=== PATIENT | female | born 1950 | race Caucasian/White ===

== ENCOUNTER 2018-06-21 11:32 | Outpatient (REF) | payer MEDICARE, BC, SELFPAY ==
--- NOTE | 2018-06-21 09:30 | PAPFT_PTH ---
PATIENT: Edda Hogue LOC: [facility] U#:[id number] AGE/SX: 67/F ROOM: RE06/21/[address]: ARIEL Silver : 1950 BED: DIS: 06/21/2018 SPEC #: [id number] RECD: 06/21/18 13:17 STATUS: SUSAN REQ #: [id number] DAYA: 06/21/18 09:[address]: Mónica Hamilton DEPT: [facility] Cytology RECD BY: Khushboo Nixon ENTERED: 06/21/18 13:17 SP TYPE: PAPFT OT DR: Terra Wilson MD Tissues: 1 - CX/ENDOCX FOR PAP SMEARS Procedures: PAP THIN PREP/UVM Screening Comments: [id number]
== END 2018-06-21 11:52 ==
LOC: LBN 11:32
PROVIDERS: PCP Internal Medicine; Visit Provider Nurse Practitioner Family
DX: Z12.4 Encounter for screening for malignant neoplasm of cervix (principal)
CPT/HCPCS: 88142

== ENCOUNTER 2018-06-26 02:24 | Outpatient (CLI) | payer MEDICARE, BC, SELFPAY ==
[2018-06-26 11:30] LABS: Abs Immature Grans 0.01 k/cumm (0.0-0.09); Absolute Basophil Count 0.04 k/cumm (0.0-0.2); Absolute Eosinophil Count 0.12 k/cumm (0.0-0.7); Absolute Lymphocyte Count 2.58 k/cumm (1.2-3.4); Absolute Monocyte Count 0.43 k/cumm (0.11-0.7); Absolute Neutrophil Count 2.23 k/cumm (1.2-6.7); Basophils % 0.7; Eosinophils % 2.2; HCT 42.3 % (36.0-46.0); HGB 14.3 g/dL (12.0-15.5); Immature Grans % 0.2; Lymphocytes % 47.7; Mean Corp. HGB Concentration 33.8 g/dL (32.0-36.0); Mean Corpuscular Hemoglobin 31.2 pg (27.0-33.0); Mean Corpuscular Volume 92.2 fL (80-95); Mean Platelet Volume 10.8 fL (8.0-11.0); Monocytes % 7.9; Neutrophils % 41.3; Platelet Count 234 x1000/uL (130-400); RBC 4.59 m/cumm (4.00-5.20); RBC Distribution Width 12.2 % (11.7-14.6); White Blood Cell Count 5.41 k/cumm (4.4-10.8)
[2018-06-26 11:55] LABS: ALT 24 U/L (12-78); AST 15 U/L (15-37); Albumin 3.5 g/dL (3.4-5.0); Alkaline Phosphatase 74 U/L (46-116); Anion Gap 4.5 mmol/L (3-11); BUN 16 mg/dL (7-18); Bilirubin, Total 0.5 mg/dL (0.2-1.0); CO2 29.5 mmol/L (21.0-32.0); CREATININE 0.78 mg/dL (0.55-1.02); Chloride 103 mmol/L (98-107); Cholesterol 255 mg/dL (50-200); Glucose 83 mg/dL (70-100); HDL Cholesterol 76 mg/dL (40-60); LDL CHOLESTEROL 158 mg/dL (<100); Potassium 4.1 mmol/L (3.5-5.1); Sodium 137 mmol/L (136-145); TSH (W/Ref FT4) 1.35 uIU/mL (0.358-3.74); Total Protein 6.4 g/dL (6.4-8.2); Triglyceride 94 mg/dL (30-150)
== END 2018-06-26 02:44 ==
PROVIDERS: PCP Internal Medicine; Visit Provider Internal Medicine
DX: I10 Essential (primary) hypertension (principal); E78.5 Hyperlipidemia, unspecified; R63.5 Abnormal weight gain
CPT/HCPCS: 36415; 80053; 80061; 83721; 84443; 85025

== ENCOUNTER 2019-03-21 12:45 | Emergency (ER) | payer MEDICARE, BC, SELFPAY ==
[2019-03-21] VITALS (8 sets, daily range): BP systolic 168–172; BP diastolic 73–81; PULSE 48–63; RESP 11–18; TEMP 36.5; O2SAT 95–98
--- NOTE | 2019-03-21 12:58 | ED.GENADUL_ITS ---
Discharge Plan Disposition Patient Disposition: HOME Condition: Stable Discharge Details Chief Complaint: Chest Pain Clinical Impression: Chest pain Primary Care Provider: Terra Purcell ED Provider: Aime Tarango Home Meds and New Rx's Prescriptions: Continued ibandronate [Boniva] 150 mg tablet 150 mg PO QMONTH Qty: 12 RF: 0 calcium carbonate-vitamin D3 1 EACH tablet 1 tab-cap PO BID Qty: 200 RF: 4 ascorbic acid (vitamin C) [Vitamin C] 500 MG capsule, extended release 500 mg PO BID Qty: 200 RF: 4 cholecalciferol (vitamin D3) 1,000 UNIT tablet 1,000 unit PO daily prn Qty: 100 RF: 4 TheraTears Nutrition 1 EACH capsule 3 tab PO DAILY RF: 0 CENTRUM SILVER TABLET 1 EACH tablet 1 tab-cap PO DAILY Qty: 100 RF: 4 ibuprofen 200 MG tablet 400 mg PO Q6H PRN RF: 0 omeprazole 10 mg capsule,delayed release(DR/EC) 20 mg PO .Every other day RF: 0 lisinopril 10 mg tablet 10 mg PO DAILY Qty: 90 RF: 4 Discharge Instructions Instructions: Chest Pain (ED) Additional Instructions: if symptoms are worsening, you have worse pain or difficulty breathing or feel more ill return to the emergency department Medical Decision Making 68 yo female with hx of htn comes in with intermittent weird sensation in left chest for 2 weeks. denies prior hx of heart disease, no prior IN, stents or cabg. She denies radiation of pain, diaphhoresis, n/v or pain with exertion. She localizes the pain to the left anterior chest in mid clavicular line and has reproducible pain here, clear lung sonuds andno pain with deep breaths. She has no fevers or cough, no le swelling or calf pain. She is speaking in full sentences on exam in no distress. Her heart score is 3, will send troponin. She has no hypoxia or tachycardia and no evidence of dvt so doubt Pe. no tearing back pain and normal vascular exam so doubt dissection pt remains stable, has intermittent twinges in above stated area. Labs reassuring, given low heart score and symptoms over a week do not feel repeat troponin indicated. Will have her f/u with her pcp, return precautions given Differential Diagnosis Differential Diagnosis: nstemi, palpitations, pna Medical Records Medical records reviewed: Yes I reviewed the patient's medical records. Lab Data Lab results reviewed: Yes I reviewed the patient's lab results. ECG Data Attestation: I personally reviewed and interpreted this ECG (s) as follows: Prior ECG tracings: not available for review Interpretation: sinus rhythm, rate of 60, pr 113, qtc 412, no acute st t wave ischemic findings HPI General Mode of arrival: ambulatory . Date/Time Provider Initiated Documentation: 03/21/19 12:54 . Limitations to Documentation: no limitations . Information obtained by: patient . History of Present Illness 68 year old F presents to the emergency department with the chief complaint of chest discomfort, described as mild, and it has been constant. No relieving factors improve symptom(s), No exacerbating factors reported . Patient did receive the following treatments prior to arrival, none Related Data Home Medications Medication Instructions Recorded Confirmed Centrum Silver Tablet 1 tab-cap PO DAILY #100 tab-cap 10/20/12 03/21/19 TheraTears Nutrition 3 tab PO DAILY 10/20/12 03/21/19 ascorbic acid (vitamin C) [Vitamin 500 mg PO BID #200 tab-cap 10/20/12 03/21/19 C] calcium carbonate-vitamin D3 1 tab-cap PO BID #200 tab-cap 10/20/12 03/21/19 cholecalciferol (vitamin D3) 1,000 unit PO daily prn #100 10/20/12 03/21/19 tab-cap ibuprofen 400 mg PO Q6H PRN tab-cap 03/19/14 03/21/19 omeprazole 10 mg capsule,delayed 20 mg PO .Every other day tab-cap 06/21/18 release ibandronate 150 mg tablet 150 mg PO QMONTH #12 tab 06/25/18 03/21/19 lisinopril 10 mg tablet 10 mg PO DAILY #90 tab 03/13/19 03/21/19 Previous Rx's Medication Instructions Recorded ibandronate 150 mg tablet 150 mg PO QMONTH #12 tab 06/25/18 lisinopril 10 mg tablet 10 mg PO DAILY #90 tab 03/13/19 Allergies Allergy/AdvReac Type Severity Reaction Status Date / Time nitrofurantoin Allergy Intermediate rash, Verified 03/21/19 13:08 [From Macrobid] itching nitrofurantoin Allergy Intermediate rash, Verified 03/21/19 13:08 macrocrystalline itching [From Macrobid] sertraline AdvReac Mild diarrhea Verified 03/21/19 13:08 Review of Systems Review of Systems ROS Unobtainable: All systems reviewed & are unremarkable except as noted in HPI and below Constitutional Constitutional: Denies chills, Denies fever(s) and Denies weakness Cardiovascular Cardiovascular: Denies dyspnea Respiratory Respiratory: Denies cough and Denies dyspnea Gastrointestinal Gastrointestinal: Denies abdominal pain, Denies nausea and Denies vomiting Musculoskeletal Musculoskeletal: Denies joint swelling Neurologic Neurologic: Denies weakness [facility] Medical History (Updated 06/21/18 @ 09:45 by Mónica Hamilton NP) Gastroesophageal reflux disease (Chronic 04/29/14) 05/18 UGI small HH and GERD Hypertension (Acute) Osteoporosis (Acute) Postmenopausal bleeding (Resolved) Inactive endometrium on D+C/hysteroscopy specimen. I recommended using U/S measurement of ES for future eval of PMB. Surgical History (Updated 03/21/18 @ 14:35 by [employer] [place]) Dilation and curettage 04/17 with hysteroscopy. Normal anatomy and path findings. 03/2016-with hysteroscopy Family History Mother Essential hypertension Heart disease Hyperlipidemia Father Stroke Maternal Grandfather Dementia Paternal Grandfather Heart disease Maternal Grandmother Cancer Paternal Grandmother Heart disease Sister Graves disease Thyroid disease Brother Lung cancer Brother No problems noted. Daughter No problems noted. Social History (Updated 06/26/18 @ 08:36 by Elvia Mireles) Smoking/Tobacco Use Status: Former Tobacco Use Quit Date: 08/07/95 Second Hand Exposure: Yes Alcohol Intake: current Alcohol Intake frequency: a few times a week Alcohol type: wine Drug use: Never Substance use type: former substance user and marijuana Caregiver/Support person: No Household members: none Housing: condominium Pets and animals: No Sexually active: No Duration: 30-45 minutes/day Frequency: 3-4 times per week Gabi/Congregational: No preference Special gabi needs: No Do you feel safe at home: Yes Do you feel safe in your relationship?: Yes History History 4 Para 1 Hx # Term Pregnancies Multiple births Hx # Pregnancies Ectopic pregnancies AB induced Hx Number of Living Children AB spontaneous Exam Const General: no acute distress Orientation: alert HENMT Head: normal to inspection Ears: external ears normal General nose exam: external nose normal Mouth: moist mucous membranes Eyes General: appearance normal, both eyes and all related structures Neck Neck: normal visual inspection Resp Effort & Inspection: normal respiratory effort and able to speak in complete sentences Cardio Rate: regular rate Skin General skin exam: no rashes or lesions noted Neuro General: alert and oriented x3 Extrem General: normal to inspection Psych Mental Status: mental status grossly normal
[2019-03-21 13:07] LABS: Abs Immature Grans 0.01 k/cumm (0.0-0.09); Absolute Basophil Count 0.02 k/cumm (0.0-0.2); Absolute Eosinophil Count 0.08 k/cumm (0.0-0.7); Absolute Lymphocyte Count 2.87 k/cumm (1.2-3.4); Absolute Monocyte Count 0.57 k/cumm (0.11-0.7); Absolute Neutrophil Count 5.32 k/cumm (1.2-6.7); Basophils % 0.2; Eosinophils % 0.9; HCT 42.7 % (36.0-46.0); HGB 14.7 g/dL (12.0-15.5); Immature Grans % 0.1; Lymphocytes % 32.4; Mean Corp. HGB Concentration 34.4 g/dL (32.0-36.0); Mean Corpuscular Hemoglobin 31.1 pg (27.0-33.0); Mean Corpuscular Volume 90.3 fL (80-95); Mean Platelet Volume 10.5 fL (8.0-11.0); Monocytes % 6.4; Platelet Count 293 x1000/uL (130-400); RBC 4.73 m/cumm (4.00-5.20); RBC Distribution Width 12.2 % (11.7-14.6); White Blood Cell Count 8.87 k/cumm (4.4-10.8)
--- NOTE | 2019-03-21 13:16 | NUR.NOTE ---
Nursing Note: pt reports that she has had several episodes over the past couple of months of a funny sensation in her heart to the best that she can describe it it feels like something flowing throughout my heart denies palpitation, denies sob, denies dizziness, denies pain. these episodes usually last about a minute but today they have been constant.
[2019-03-21 13:31] LABS: BUN 16 mg/dL (7-18); CREATININE 0.85 mg/dL (0.55-1.02); Calcium 9.1 mg/dL (8.5-10.1); Chloride 103 mmol/L (98-107); Glucose 95 mg/dL (70-100); Potassium 3.7 mmol/L (3.5-5.1); Sodium 140 mmol/L (136-145)
[2019-03-21 13:32] LABS: Troponin I < 0.05 ng/mL (0.00-0.06)
--- NOTE | 2019-03-21 18:27 | NUR.NOTE ---
referral faxed to patient pcp Dr Kathi Segundo.Nursing Note:
== END 2019-03-21 14:04 | disposition home or self-care (01) ==
PROVIDERS: Emergency Provider Emergency Medicine; PCP Internal Medicine
DX: R07.9 Chest pain, unspecified (principal); I10 Essential (primary) hypertension; Z87.891 Personal history of nicotine dependence
CPT/HCPCS: 36415; 80048; 93005; 99285; 84484; 85025; 93010

== ENCOUNTER 2019-03-28 11:55 | Outpatient (CLI) | payer MEDICARE, BC, SELFPAY ==
--- NOTE | 2019-03-28 11:30 | ETT_ITS ---
APPROVED REPORT Exam: Exercise Treadmill Patient Location: Out-Patient Stress Nurse: Maribel Jimenez RN Baseline Rhythm: Bradycardia BMI: 29.17 Indications: Chest Pain Medical History Medical History: HTN, Hyperlipidemia, Smoking(FORMER) Cardiac Medications: Lisinopril Allergies: Nitrofurantin, sertraline Cardiac Risk Factors: HTN, Hyperlipidemia, FHX of CAD, Smoking( former) Pretest Chest Pain Characteristics: Atypical angina Exercise History: Physically active Lung Sounds: Clear to auscultation Heart Sounds: Regular Stress Test Details Test: Exercise stress testing was performed using a Devin protocol. Rest Stress HR Resting HR: 56 bpm Max Heart Rate (APMHR): 154 bpm Resting HR Supine: 56 bpm Target HR (85% APMHR): 130 bpm Resting HR Standin bpm Max HR Achieved: 164 bpm % of APMHR: 106 Recovery HR: 69 bpm HR response to stress: Normal HR response to stress BP Resting BP: 134/90 mmHg Resting BP Supine: 134/90 mmHg Resting BP Standin/84 mmHg Max BP: 180/78 mmHg Recovery BP: 154/88 mmHg BP response to stress: Normal blood pressure response to stress. ECG Resting ECG: Sinus Bradycardia, borderline short pr interval Stress ECG: Sinus Tachycardia ST Change: none Arrhythmia: , VPC's, Atrial fibrillation, SVT, Non-sustained VT Recovery ECG: Sinus Rhythm Recovery ST Change: Normal Recovery Arrhythmia: VPC Clinical Time of Stop for Devin: 6:44 Reason for Termination: Fatigue, Target HR Achieved Stress Symptoms: General Fatigue, left arm discomfort/heaviness Exercise duration: 6 min44 sec Highest Stage Achieved: Stage 3: 3.4 mph at 14% grade. Exercise capacity: 8.19 METs Functional Capacity: Above average capacity Stress ECG Conclusion 1. Patient exercised for a duration of 6 minutes 44 seconds (8.2 METS) which suggests average exercis e tolerance 2. The patient achieved target heart rate and stopped due to fatigue which suggests a maximal stress test. 3. There was no evidence of ischemia on ECG 4. The Sahni Score (6) estimates an annual cardiovascular mortality of 0% and a five year survival of 95%. Using the Sahni Score there is a low probability of any angiographic coronary disease. Test Summary supine 0 0 56 134/90 standing 0 0 63 150/84 100 1 03:00 10 1.7 1063 4.64 160/88 100 2 02:59 12 2.5 154 7.05 176/92 97 3 00:44 14 3.4 164 8.19 97 1 min recovery 141 180/78 99 3 min recovery 84 178/80 6 min recovery 69 154/88
== END 2019-03-28 12:15 ==
PROVIDERS: PCP Internal Medicine; Visit Provider Internal Medicine
DX: R07.89 Other chest pain (principal); I10 Essential (primary) hypertension; E78.5 Hyperlipidemia, unspecified; Z87.891 Personal history of nicotine dependence; Z82.49 Family history of ischemic heart disease and other diseases of the circulatory system
CPT/HCPCS: 93016; 93018; 93017

== ENCOUNTER 2019-04-08 14:19 | Outpatient (CLI) | payer MEDICARE, BC, SELFPAY ==
[2019-04-08 16:00] LABS: TSH (W/Ref FT4) 0.98 uIU/mL (0.36-3.74)
== END 2019-04-08 14:39 ==
PROVIDERS: PCP Internal Medicine; Visit Provider Internal Medicine
DX: R07.89 Other chest pain (principal); I10 Essential (primary) hypertension; R00.1 Bradycardia, unspecified
CPT/HCPCS: 36415; 84443

== ENCOUNTER 2019-04-09 01:57 | Outpatient (CLI) | payer MEDICARE, BC, SELFPAY | END 2019-04-09 02:17 | PROVIDERS: PCP Internal Medicine; Visit Provider Internal Medicine | DX: R00.1 Bradycardia, unspecified (principal); I47.1 Supraventricular tachycardia; I49.1 Atrial premature depolarization; I49.3 Ventricular premature depolarization | CPT/HCPCS: 93225 ==

== ENCOUNTER 2019-04-12 07:26 | Outpatient (CLI) | payer MEDICARE, BC, SELFPAY ==
--- NOTE | 2019-04-12 08:42 | W.HOLTRPT ---
Holter Monitor Report Holter Monitor Note: This is a 48-hour Holter monitor ordered for the indication of bradycardia. ?Patient was in normal sinus rhythm for the majority of the recording. Mean heart rate 48 bpm, minimum heart rate 36 bpm and maximum heart rate 104 bpm. ?There were 2 episodes of supraventricular tachycardia the longest lasting 5 beats. There were rare (less than 1%) premature atrial contractions. ?There were no episodes of ventricular tachycardia. There were 2 single ventricular ectopic beats. ?Diary events were associated with sinus rhythm and sinus bradycardia. ?There were no pauses greater than 3 seconds, no high degree heart block, and no episodes of atrial fibrillation. Date of service: 04/12/19 Time of Service: 08:42
== END 2019-04-12 07:46 ==
PROVIDERS: PCP Internal Medicine; Visit Provider Internal Medicine
DX: R00.1 Bradycardia, unspecified (principal); I49.1 Atrial premature depolarization; I47.1 Supraventricular tachycardia; I49.3 Ventricular premature depolarization
CPT/HCPCS: 93227; 93226

== ENCOUNTER 2019-10-24 21:14 | Outpatient (REF) | payer MEDICARE, BC, SELFPAY ==
[2019-10-24 21:29] LABS: Calculated LDL 198 mg/dL (<100); Cholesterol 302 mg/dL (<200); HDL Cholesterol 76 mg/dL (40-60); Triglyceride 141 mg/dL (<150)
[2019-10-24 21:50] LABS: Vitamin D 25 Total 69.1 ng/ml (30-100)
== END 2019-10-24 21:34 ==
LOC: LBN 21:14
PROVIDERS: PCP Nurse Practitioner; Visit Provider Nurse Practitioner
DX: I10 Essential (primary) hypertension (principal); M81.0 Age-related osteoporosis without current pathological fracture
CPT/HCPCS: 80061; 82306

== ENCOUNTER 2020-01-21 02:31 | Outpatient (CLI) | payer MEDICARE, BC, SELFPAY ==
[2020-01-21 09:09] LABS: Calculated LDL 77 mg/dL (<100); Cholesterol 167 mg/dL (<200); HDL Cholesterol 73 mg/dL (40-60); Triglyceride 86 mg/dL (<150)
== END 2020-01-21 02:51 ==
PROVIDERS: PCP Nurse Practitioner; Visit Provider Nurse Practitioner
DX: E78.5 Hyperlipidemia, unspecified (principal)
CPT/HCPCS: 36415; 80061

== ENCOUNTER 2020-09-08 01:20 | Outpatient (CLI) | payer MEDICARE, BC, SELFPAY ==
--- NOTE | 2020-09-08 09:00 | DI.DEXA_ITS ---
EXAM: XR DEXA BONE DENSITY W/WO MERARY CLINICAL HISTORY: OSTEOPOROSIS,M81.0 TECHNIQUE: [employer] C densitometer. COMPARISON: Comparison 2006 through 2018 FINDINGS: Lateral view of the thoracic and lumbar spine shows increased thoracic kyphosis but no visible compr ession fracture. Bone mineral density measurements of the lumbar spine correspond to a total T-score of -2.0. This re presents a 9.7 percent increase when compared with 2018 a 6.9 percent increase when compared with 22 12. The bone mineral density measurements of the left hip correspond to a total T-score of -1.6 and a fem oral neck T-score of -2.0, in the osteopenic range. There is no significant change from 2018. This represents a 4.0 percent decrease in bone density when compared with 2006. The left forearm bone mineral density measurements correspond to a T-score of the distal 3rd of -3.1, in the osteoporotic range. This is not severe significantly changed when compared with 2018 but rep resents a 24.1 percent decrease when compared with 2010 IMPRESSION: Osteoporosis of the left forearm. Osteopenia of the lumbar spine and left hip.
== END 2020-09-08 01:40 ==
PROVIDERS: PCP Nurse Practitioner; Visit Provider Nurse Practitioner
DX: M81.0 Age-related osteoporosis without current pathological fracture (principal); M85.88 Other specified disorders of bone density and structure, other site
CPT/HCPCS: 77080

== ENCOUNTER 2021-09-28 05:29 | Outpatient (CLI) | payer MEDICARE, BC, SELFPAY ==
[2021-09-28 09:22] LABS: Anion Gap 3.9 mmol/L (3-11); BUN 18 mg/dL (7-18); CO2 31.1 mmol/L (21.0-32.0); CREATININE 0.7 mg/dL (0.55-1.02); Calcium 8.8 mg/dL (8.5-10.1); Calculated LDL 64 mg/dL (<100); Chloride 106 mmol/L (98-107); Cholesterol 152 mg/dL (<200); Glucose 89 mg/dL (74-106); HDL Cholesterol 74 mg/dL (40-60); Potassium 4.3 mmol/L (3.5-5.1); Sodium 141 mmol/L (136-145); Triglyceride 72 mg/dL (<150)
== END 2021-09-28 05:30 | disposition home or self-care (01) ==
LOC: LBO 05:31
PROVIDERS: PCP Nurse Practitioner; Visit Provider Nurse Practitioner
DX: I10 Essential (primary) hypertension (principal); E78.2 Mixed hyperlipidemia
CPT/HCPCS: 36415; 80048; 80061

== ENCOUNTER 2022-09-21 10:44 | Outpatient (CLI) | payer MEDICARE, BC, SELFPAY ==
[2022-09-21 09:05] LABS: HCT 43.7 % (36.0-46.0); HGB 14.6 g/dL (11.2-15.7); MCH 30.5 pg (27.0-33.0); MCHC 33.4 % (32.0-36.0); MCV 91 fL (80-95); MPV 10.8 fL (8.0-11.0); Platelet Count 244 10^3/uL (130-400); RBC 4.78 10^6/uL (3.93-5.22); RDW 11.8 % (11.7-14.6); RDW-SD 39.7 fL; WBC 6.44 10^3/uL (4.4-10.8)
[2022-09-21 09:38] LABS: ALT 32 U/L (14-59); AST 19 U/L (15-37); Albumin 3.6 g/dL (3.4-5.0); Alkaline Phosphatase 65 U/L (46-116); Anion Gap 2.5 mmol/L (3-11); BUN 15 mg/dL (7-18); Bilirubin, Total 0.4 mg/dL (0.2-1.0); CO2 31.5 mmol/L (21.0-32.0); CREATININE 0.9 mg/dL (0.55-1.02); Calcium 9.1 mg/dL (8.5-10.1); Calculated LDL 64 mg/dL (<100); Chloride 107 mmol/L (98-107); Cholesterol 148 mg/dL (<200); Glucose 96 mg/dL (74-106); HDL Cholesterol 70 mg/dL (40-60); Potassium 4.1 mmol/L (3.5-5.1); Sodium 141 mmol/L (136-145); Total Protein 6.7 g/dL (6.4-8.2); Triglyceride 72 mg/dL (<150)
== END 2022-09-21 10:45 | disposition home or self-care (01) ==
LOC: LBO 10:50
PROVIDERS: PCP Nurse Practitioner Family; Visit Provider Nurse Practitioner Family
DX: E78.5 Hyperlipidemia, unspecified (principal); I10 Essential (primary) hypertension; K21.9 Gastro-esophageal reflux disease without esophagitis; R00.1 Bradycardia, unspecified; E78.2 Mixed hyperlipidemia
CPT/HCPCS: 36415; 80053; 80061; 85027

== ENCOUNTER 2023-10-25 08:35 | Outpatient (CLI) | payer MEDICARE, BC, SELFPAY ==
[2023-10-25 09:34] LABS: Anion Gap 6.7 mmol/L (3-11); BUN 19 mg/dL (7-18); CO2 30.3 mmol/L (21.0-32.0); CREATININE 0.9 mg/dL (0.55-1.02); Calcium 9.2 mg/dL (8.5-10.1); Calculated LDL 107 mg/dL (<100); Chloride 105 mmol/L (98-107); Cholesterol 203 mg/dL (<200); Estimated GFR 68.77 (mL/min/1.73m2); Glucose 108 mg/dL (74-106); HDL Cholesterol 79 mg/dL (40-60); Potassium 4.3 mmol/L (3.5-5.1); Sodium 142 mmol/L (136-145); Triglyceride 88 mg/dL (<150)
== END 2023-10-25 08:36 | disposition home or self-care (01) ==
LOC: LBO 08:35
PROVIDERS: PCP Nurse Practitioner Family; Visit Provider Nurse Practitioner Family
DX: Z00.00 Encounter for general adult medical examination without abnormal findings (principal); I10 Essential (primary) hypertension; E78.2 Mixed hyperlipidemia; M81.0 Age-related osteoporosis without current pathological fracture; K21.9 Gastro-esophageal reflux disease without esophagitis
CPT/HCPCS: 36415; 80048; 80061

== ENCOUNTER 2024-11-06 07:33 | Outpatient (CLI) | payer MEDICARE, BC, SELFPAY ==
[2024-11-06 08:22] LABS: Hemoglobin A1C 5.2 % (<5.7)
[2024-11-06 08:43] LABS: ALT 16 U/L (14-59); AST 16 U/L (15-37); Albumin 3.6 g/dL (3.4-5.0); Alkaline Phosphatase 65 U/L (46-116); BUN 19 mg/dL (7-18); Bilirubin, Total 0.6 mg/dL (0.2-1.0); Calcium 9.7 mg/dL (8.5-10.1); Calculated LDL 67 mg/dL (<100); Chloride 105 mmol/L (98-107); Cholesterol 151 mg/dL (<200); Estimated GFR 60.23 (mL/min/1.73m2); Glucose 91 mg/dL (74-106); HDL Cholesterol 69 mg/dL (>or=50); Sodium 139 mmol/L (136-145); Total Protein 6.6 g/dL (6.4-8.2); Triglyceride 75 mg/dL (<150); Vitamin D 25 Total 68 ng/mL (30-100)
== END 2024-11-06 07:34 | disposition home or self-care (01) ==
LOC: LBO 07:34
PROVIDERS: PCP Nurse Practitioner Family; Visit Provider Nurse Practitioner Family
DX: I10 Essential (primary) hypertension; E78.2 Mixed hyperlipidemia; M81.0 Age-related osteoporosis without current pathological fracture; K21.9 Gastro-esophageal reflux disease without esophagitis; E66.9 Obesity, unspecified
CPT/HCPCS: 36415; 80053; 80061; 82306; 83036

== ENCOUNTER 2024-11-13 01:57 | Outpatient (CLI) | payer MEDICARE, BC, SELFPAY ==
--- NOTE | 2024-11-13 06:30 | DI.DEXA_ITS ---
Exam(s) XR DEXA BONE DENSITY W/WO MERARY EXAM: XR DEXA BONE DENSITY W/WO MERARY CLINICAL HISTORY: screening for osteoporosis in postmenopausal status,z78.0,preventative TECHNIQUE: COMPARISON: CR XR DEXA BONE DENSITY W/WO MERARY from 09/08/2020 FINDINGS: Lateral Spine Image: Unremarkable. No compression deformities identified. Left hip: Total T-Score: -1.4. This compares to -1.6 on the prior examination. Total Z-Score: 0.2 T- and Z-scores: Findings are consistent with osteopenia. Lumbar Spine: Total T-Score: -1.9. This compares to -2.0 on the prior examination. Total Z-Score: 0.3 T- and Z-scores: Overall, the findings are consistent with osteopenia. There is osteoporosis in the L1 and L2 vertebral bodies with T-scores of -2.5 and -2.6 respectively. There is osteoporosis in the left forearm with a total T-score of -2.9 and Z-score of -0.8. This com pares with a total T-score of -3.0 on the prior examination. IMPRESSION: Osteoporosis is seen in the left forearm and in the L1 and L2 vertebral bodies.
== END 2024-11-13 02:17 ==
LOC: DI 01:57
PROVIDERS: PCP Nurse Practitioner Family; Visit Provider Nurse Practitioner Family
DX: Z13.820 Encounter for screening for osteoporosis (principal); Z78.0 Asymptomatic menopausal state; M81.0 Age-related osteoporosis without current pathological fracture
CPT/HCPCS: 77080